=== PATIENT | female | born 1975 | race Caucasian/White ===

== ENCOUNTER → 2017-02-23 | Outpatient (CLI) | payer OTHER ==
--- NOTE | 2017-02-23 10:36 | WOMENS IMAGING REPORT ---
EXAM DESCRIPTION: U/S BREAST UNILAT LIMITED COMPLETED DATE/TIME: 02/23/2017 9:41 am REASON FOR STUDY: N60.01 U/S LIMITED N60.01 SOLITARY CYST OF RIGHT BREAST COMPARISON: None. TECHNIQUE: Real-time and static grayscale imaging performed of the right breast targeted to the area of clinical/mammographic concern. Selected color Doppler images recorded. LIMITATIONS: None. FINDINGS: MASS: Several well-circumscribed anechoic lesions with smooth posterior wall typical of be nign cyst identified in the 3 and 11 o'clock positions. In the 9 o'clock position there is a 11 x 8 x 10 mm hypoechoic lesion with internal septations and no internal flow on color Doppler. OTHER: No other significant finding. IMPRESSION: Benign cysts. There is also a complex cystic lesion at 9 o'clock which does not meet de finite benign ultrasound criteria. Correlation with mammography is recommended. Consider diagnostic cyst aspiration. BIRAD: 0 Incomplete: Needs Additional Imaging Evaluation and/or prior Mammograms for Comparison. RECOMMENDATION: RECOMMENDED FOLLOW-UP: Follow-up as clinically indicated. COMMENT: The [employer] (ACR) has developed recommendations for screening MRI of the breasts in certain patient populations, to be used in conjunction with mammography. Breast MRI s urveillance may be appropriate for women with more than 20% lifetime risk of developing breast cancer as determined by genetic testing, significant family history of the disease, or history of mantle r adiation for Hodgkins Disease. ACR Practice Guidelines 2008. TECHNICAL DOCUMENTATION: JOB ID: [id number] [employer]- All Rights Reserved
== END ==
LOC: WI 08:59
PROVIDERS: ATTEND Family Medicine
DX: N60.01 Solitary cyst of right breast (principal)
CPT/HCPCS: 76642

== ENCOUNTER → 2017-03-05 | Outpatient (CLI) | payer OTHER ==
--- NOTE | 2017-03-05 16:12 | WOMENS IMAGING REPORT ---
EXAM DESCRIPTION: BILAT DIAGNOSTIC MAMMO W/CAD COMPLETED DATE/TIME: 03/05/2017 12:19 pm REASON FOR STUDY: N63, BREAST LUMP N63 UNSPECIFIED LUMP IN BREAST COMPARISON: Ultrasound right breast dated 02/23/2017. Mammograms and ultrasound from outside facility dated 07/12/2016. TECHNIQUE: Standard craniocaudal and mediolateral oblique views of each breast recorded using digita l acquisition. Additional true lateral view of the right breast also acquired. LIMITATIONS: None. FINDINGS: RIGHT BREAST MASSES: Stable nodular masses. CALCIFICATIONS: No new or suspicious calcifications. ARCHITECTURAL DISTORTION: None. DEVELOPING DENSITY: None. ASYMMETRY: None noted. OTHER: No other significant findings. LEFT BREAST MASSES: Stable surgical changes of mastectomy. No suspicious masses. CALCIFICATIONS: No new or suspicious calcifications. ARCHITECTURAL DISTORTION: Stable surgical changes with architectural distortion. DEVELOPING DENSITY: None. ASYMMETRY: None noted. OTHER: No other significant finding. Read with the assistance of CAD: .[facility] - R2 C[employer] Version 1.3 .[facility] - R2 Cenova Version 1.3 .[facility] - R2 Cenova Version 2.4 .[facility] [place] - R2 Cenova Version 2.4 .[facility] - R2 [employer] Version 9.2 IMPRESSION: Stable mammographic appearance of both breasts. Stable mastectomy changes in the left b reast. The cystic lesions in the right breast recently evaluated with ultrasound (02/23/2017) are stab le compared to the prior study (07/12/2016). This includes the complex cystic lesion in the 9 o'cloc k location. BREAST DENSITY: c. The breasts are heterogeneously dense, which may obscure small masses. BIRAD: 2 Benign findings. RECOMMENDATION: RECOMMENDED FOLLOW UP: Birads 1 or 2: The patient should resume routine screening . SPECIFIC INTERVENTION/IMAGING/CONSULTATION RECOMMENDED:No additional intervention/ imaging/consultati on needed at this time. COMMUNICATION:The negative/benign results were communicated to the patient. COMMENT: The patient has been notified of the results by letter per MQSA requirements. Additional no tification policies are in place for contacting patient with suspicious or incomplete findings. Quality ID #[id number]: The [employer] recommends an annual screening mammogram for women aged 40 years or over. This facility utilizes a reminder system to ensure that all patients receive reminder letters, and/or direct phone calls for appointments. This includes reminders for routine scr eening mammograms, diagnostic mammograms, or other Breast Imaging Interventions when appropriate. Th is patient will be placed in the appropriate reminder system. The [employer] (ACR) has developed recommendations for screening MRI of the breast s in certain patient populations, to be used in conjunction with mammography. Breast MRI surveillanc e may be appropriate for women with more than 20% lifetime risk of developing breast cancer as deter mined by genetic testing, significant family history of the disease, or history of mantle radiation f or Hodgkins Disease. ACR Practice Guidelines 2008. TECHNICAL DOCUMENTATION: FINDING NUMBER: (1) ASSESSMENT: (1) JOB ID: [id number] [employer]- All Rights Reserved
== END ==
LOC: WI 13:40
PROVIDERS: ATTEND Family Medicine
DX: N63 Unspecified lump in breast (principal)
CPT/HCPCS: 77066; G0204

== ENCOUNTER → 2017-04-18 | Outpatient (CLI) | payer OTHER ==
[~2017-04-18] MED LIST: DIAZEPAM 5 MG TABLET ONE
--- NOTE | 2017-04-18 13:28 | RADIOLOGY REPORT (SQ) ---
EXAM DESCRIPTION: MRI HEAD WITHOUT COMPLETED DATE/TIME: 04/18/2017 11:13 am REASON FOR STUDY: HEADACHE R51 HEADACHE COMPARISON: CT dated 05/30/2015. TECHNIQUE: Multiplanar imaging includes non-contrasted T1, T2, FLAIR, and diffusion with ADC map seq uences. Images stored on PACS. LIMITATIONS: None. FINDINGS: ANATOMY: No anomalies. Normal vascular flow voids. Pituitary fossa normal. CSF SPACES: Normal in size and contour. No hemorrhage. CEREBRUM: Sulci and gyri normal in size and contour. Normal white matter signal on FLAIR imaging. No evidence of hemorrhage, mass, or extraaxial fluid collection. POSTERIOR FOSSA: No signal alteration. No hemorrhage. No edema, masses or mass effect. Internal lance tory canals, cerebello-pontine angles, mastoids normal. DIFFUSION IMAGING: Negative for acute or sub-acute infarction. ORBITS: No masses. Globes normal. PARANASAL SINUSES: No fluid levels. Mucosa normal. OTHER: No other significant finding. IMPRESSION: NORMAL MRI OF THE BRAIN WITHOUT INTRAVENOUS GADOLINIUM CONTRAST. EVIDENCE OF ACUTE STROKE: NO. TECHNICAL DOCUMENTATION: JOB ID: [id number] [employer]- All Rights Reserved
== END ==
LOC: RAD 04-16 12:43
PROVIDERS: ATTEND Family Medicine
DX: R51 Headache (principal)
CPT/HCPCS: 70551

== ENCOUNTER → 2017-06-19 | Outpatient (CLI) | payer OTHER ==
--- NOTE | 2017-06-20 09:24 | RADIOLOGY REPORT (SQ) ---
EXAM DESCRIPTION: MRI RT UPPER EXTREMITY WITHOUT COMPLETED DATE/TIME: 06/19/2017 3:47 pm REASON FOR STUDY: PAIN IN R FINGERS M79.644 PAIN IN RIGHT FINGER(S) COMPARISON: None. TECHNIQUE: Multiplanar imaging to include T1-weighted images, T-2 weighted images, and gradient echo imaging. Orthogonal images orientated to the plane of the right thumb. Images saved to PACS. LIMITATIONS: None. FINDINGS: BONES: Avulsed bone fragment adjacent to the margin of the ulnar collateral ligament. LIGAMENTS: Distal UCL is torn and turned proximally consistent with a Stener lesion. TENDONS: Tendons are intact without evidence for tendinopathy. SOFT TISSUES: No other significant finding. OTHER: No other significant finding. IMPRESSION: Torn UCL with Stener lesion. Associated avulsed bone fragment. TECHNICAL DOCUMENTATION: JOB ID: [id number] [employer]- All Rights Reserved
== END ==
LOC: RAD 14:54
PROVIDERS: ATTEND Orthopaedic Surgery
DX: M79.644 Pain in right finger(s) (principal)

== ENCOUNTER 2017-09-14 05:33 | Day surgery (SDC) | payer OTHER ==
[2017-08-24 09:00] LABS: ABSOLUTE EOSINOPHILS # (AUTO) 0.1 10^3/uL (0.0-0.6); ABSOLUTE LYMPHOCYTES (AUTO) 1.3 10^3/uL (0.5-4.7); ABSOLUTE MONOCYTES (AUTO) 0.5 10^3/uL (0.1-1.4); ABSOLUTE NEUT (AUTO) 3.7 10^3/uL (1.7-8.2); BASOPHILS % (AUTO) 0.7 % (0-2); EOSINOPHILS % (AUTO) 1.6 % (0-6); HEMATOCRIT 39.1 % (36.0-47.0); HEMOGLOBIN 13.4 g/dL (12.0-15.5); MEAN CORPUSCULAR HGB CONC 34.2 g/dL (32.0-36.0); MEAN CORPUSCULAR VOLUME 85 fl (80-97); MONOCYTES % (AUTO) 9.6 % (3-13); PLATELET COUNT 236 10^3/uL (150-450); RED BLOOD COUNT 4.62 10^6/uL (3.72-5.28); RED CELL DISTRIBUTION WIDTH 13.3 % (11.5-14.0); SEGMENTED NEUTROPHILS % (AUTO) 65.1 % (42-78); TOTAL CELLS COUNTED % (AUTO) 100 %; WHITE BLOOD COUNT 5.7 10^3/uL (4.0-10.5)
--- NOTE | 2017-08-24 09:10 | RADIOLOGY REPORT (SQ) ---
EXAM DESCRIPTION: CHEST PA/LATERAL COMPLETED DATE/TIME: 08/24/2017 9:02 am REASON FOR STUDY: PRE-OP COMPARISON: 11/19/2012. EXAM PARAMETERS: NUMBER OF VIEWS: two views TECHNIQUE: Digital Frontal and Lateral radiographic views of the chest acquired. RADIATION DOSE: NA LIMITATIONS: none FINDINGS: LUNGS AND PLEURA: No opacities, masses or pneumothorax. No pleural effusion. MEDIASTINUM AND HILAR STRUCTURES: No masses or contour abnormalities. HEART AND VASCULAR STRUCTURES: Heart normal size. No evidence for failure. BONES: No acute findings. HARDWARE: Surgical clips in the soft tissues. OTHER: No other significant finding. IMPRESSION: NO SIGNIFICANT RADIOGRAPHIC FINDING IN THE CHEST. TECHNICAL DOCUMENTATION: JOB ID: [id number] [employer]- All Rights Reserved
[2017-08-24 09:27] LABS: APPEARANCE,URINE SLIGHTLY-CLOUDY; BILIRUBIN,URINE NEGATIVE (NEGATIVE); COLOR,URINE YELLOW; GLUCOSE, URINE NEGATIVE (NEGATIVE); KETONES,URINE NEGATIVE (NEGATIVE); LEUKOCYTE ESTERASE,URINE TRACE (NEGATIVE); NITRITE,URINE NEGATIVE (NEGATIVE); PROTEIN,URINE NEGATIVE (NEGATIVE); URINE SPECIFIC GRAVITY 1.029; UROBILINOGEN,URINE NEGATIVE mg/dL (<2.0)
[2017-08-24 09:30] LABS: ANION GAP 12 (5-19); BLOOD UREA NITROGEN 12 mg/dL (7-20); CALCIUM 8.9 mg/dL (8.4-10.2); CARBON DIOXIDE 23 mmol/L (22-30); CHLORIDE 106 mmol/L (98-107); GLUCOSE 78 mg/dL (75-110); SODIUM 141.3 mmol/L (137-145)
[2017-08-24 09:35] LABS: ADD MANUAL MICROSCOPIC YES
[2017-08-24 09:39] LABS: BACTERIA,URINE 3+ /HPF
--- NOTE | 2017-08-24 13:17 | EKG REPORT ---
SEVERITY:- ABNORMAL ECG - SINUS RHYTHM NONSPECIFIC INFERIOR ST CHANGES : Confirmed by: Paolo Colin MD 24-Aug-2017 13:15:27
[~2017-09-14 05:33] MED LIST changes: +ACETAMINOPHEN 0 ML IV ONE; +BUPIVACAINE HCL 0.5 % INJ/PF 30 ML SDV ONE; +CEFAZOLIN 2 GM/D5W RTU 2 GM/50 ML RTUPB IV PRN; -DIAZEPAM 5 MG TABLET ONE; +FENTANYL CITRATE INJ/PF 100 MCG/2 ML AMPUL ONE; +LACTATED RINGERS 1000 ML IV PRN; +LIDOCAINE 0.5% INJ-PF (5 MG/ML) 50 ML SDV SUBCUT PRN; +LIDOCAINE 2% INJ-PF (20 MG/ML) 10 ML AMPUL ONE; +MIDAZOLAM 2 MG/2 ML INJ ONE; +PROPOFOL INJ 200 MG/20 ML VIAL IV ONE
[2017-09-14] MEDS ORDERED: FENTANYL CITRATE INJ/PF 100 MCG/2 ML AMPUL ONE (07:08)
[2017-09-14] MEDS ORDERED: MIDAZOLAM 2 MG/2 ML INJ ONE (07:08)
[2017-09-14] MEDS ORDERED: PROPOFOL INJ 200 MG/20 ML VIAL IV ONE (07:09)
[2017-09-14] MEDS ORDERED: FENTANYL CITRATE INJ/PF 100 MCG/2 ML AMPUL IV PRN ×3 (07:52)
--- NOTE | 2017-09-14 09:10 | PDOC DISCHARGE SUMMARY ---
Discharge Summary (SDC) - Discharge Final Diagnosis: Right Thumb UCL Reconstruction Date of Surgery: 09/14/17 Discharge Date: 09/14/17 Condition: Good Treatment or Instructions: Schedule Follow Up w/ Dr. Cleveland Hernandez @ [facility] for Surgery to be seen in 10-14 days or as scheduled [place]: [place]: [place]: Ice and elevate Keep splint clean/dry/intact. If your fingers become numb please unwrap the Dev wrap but leave the splint in place, if the sensation does not return within 30 minutes please return to the emergency department. May begin finger range of motion attempting to make full fist. Please use ibuprofen (Motrin or Advil) 600-800 mg every 8 hours as needed for pain or fever. You may also use acetaminophen (Tylenol) 1000 mg every 4-6 hours as needed for pain or fever. Please be aware that many medications contain acetaminophen, do not exceed a total of 1000 mg of acetaminophen every 6 hours. If ibuprofen and acetaminophen are not sufficient for your pain you may take the Percocet. Please be aware that the Percocet does contain Tylenol. Stool softener of choice when on pain medication. Prescriptions: Oxycodone HCl/Acetaminophen [Percocet 5-325 mg Tablet] 1 - 2 tab PO ASDIR PRN # 40 tablet PRN Reason: Discharge Diet: As Tolerated Discharge Activity: No Lifting Over 10 Pounds, No Lifting/Push/Pulling Report the Following to Your Physician Immediately: Fever over 101 Degrees, Unusual Bleeding, Redness, Swelling, Warmth, Increased Soreness
[2017-09-14] MEDS ORDERED: BUPIVACAINE HCL 0.5 % INJ/PF 30 ML SDV ONE (09:13)
[2017-09-14] MEDS ORDERED: OXYCODONE-ACETAMINOPHEN 5-325 MG TABLET PO PRN (09:19)
[2017-09-14] MEDS ORDERED: ONDANSETRON HCL INJ/PF 4 MG/2 ML SDV IV PRN (09:19)
--- NOTE | 2017-09-14 09:19 | Operative Report ---
Operative Report DATE OF SURGERY: 09/14/17 PREOPERATIVE DIAGNOSIS: Right Thumb UCL Tear POSTOPERATIVE DIAGNOSIS: Same OPERATION: Right Thumb UCL Reconstruction Utilizing Autograft SURGEON: JAKE COVARRUBIAS ANESTHESIA: GA COMPLICATIONS: None ESTIMATED BLOOD LOSS: Minimal PROCEDURE: Indication for above procedure: 42-year-old female sustained a hyperextension injury to her right thumb 2 years ago. She was treated with bracing and occupational therapy but continued to have discomfort. Subsequently on follow-up with me in MRI was done demonstrating ulnar collateral ligament rupture. At that point we discussed treatment options including operative versus nonoperative intervention. Risks and benefits were explained to the patient patient verbalized understanding consented for the procedure. Procedure In Detail: Patient was seen and evaluated in the preoperative holding area. The RIGHT upper extremity was initialized and marked. Patient received 2g of Ancef IV for bacterial prophylaxis. Patient was taken back to the operative room where transferred to the operative table and placed under general anesthesia. Once they were adequately anesthetized a nonsterile tourniquet was placed on the upper extremity. A surgical team debriefing was performed ensuring all instrumentation was available, the surgical procedure was discussed with possible concerns reviewed. The upper extremity was prepped with chlorhexidine and alcohol and draped in a sterile fashion. A timeout was done identifying correct patient, procedure and extremity everyone in attendance agree with this and verbalized no concerns. The extremity was exsanguinated the tourniquet was inflated to 250 mmHg. Curvilinear skin incision was made over the ulnar collateral ligament of the thumb at the level of the MCP joint. Blunt dissection was performed small branches of the distal aspect of the superficial radial nerve were identified and retracted. I then elevated the adductor aponeurosis just ulnar to the extensor mechanism. The underlying capsule was then opened and the ulnar collateral ligament identified. There was scarring of the ulnar collateral ligament and a proximal direction and notable laxity. Thus I split the ulnar collateral ligament and inspected the joint. No loose bodies or bone fragments were appreciated. Given the longevity of patient's injury the decision was made to proceed with reconstruction. Transverse skin incision was made along the wrist and the palmaris longus identified. A 4 cm x 3 mm section of the palmaris longus was then isolated and removed for graft. The wound was copiously irrigated with normal saline and closed with subcuticular 4-0 Monocryl suture. I then turned my attention to reconstruction at the ulnar collateral ligament. With a K wire in the MCP joint and proximal phalanx the gambell ulnar collateral ligament origin and insertion were identified and confirmed with C-arm fluoroscopy. I then drilled the three-point millimeter cannulated drill over the metacarpal and phalanx. On the back table a 40 Fiber Loop was placed into my palmaris longus graft. A 3.75 forked tip swivel lock loaded with labral tape and the end of my graft was inserted into the metacarpal. While my diversional therapist's assistant held gentle ulnar deviation and the MP joint and 45 of flexion I then loaded a second 3.75 forked tip swivel lock in the phalanx with the 40 Fiber Loop. Patient had excellent stability without evidence of laxity. MP joint range of motion was 45 to 70 without laxity. The remaining fiber Loop was then used to secure the gambell ulnar collateral ligament providing further stability. The wound was then copiously irrigated with normal saline. The adductor aponeuroses was closed with interrupted 40 Fiber Loop suture. Skin was closed with a running subcuticular 4-0 Monocryl reinforced with Dermabond and Steri-Strips. Local block was performed with 20 cc of 0.5% Marcaine without epinephrine. Patient was then placed in a thumb spica splint. Tourniquet was deflated. Sponge counts, instrument counts, needle counts counts were correct. Patient was then awoken from anesthesia. Transferred from the operating room table to the operating room stretcher. There was no intraoperative complications patient tolerated procedure well stable to PACU. Postoperative plan: Patient will follow-up the office in 2 weeks for wound check and be transitioned to a thumb spica cast versus Exos.
--- NOTE | 2017-09-14 10:48 | RADIOLOGY REPORT (SQ) ---
EXAM DESCRIPTION: FINGER RIGHT; NO CHG FLUORO COMPLETED DATE/TIME: 09/14/2017 9:05 am REASON FOR STUDY: RECONSTRUCTION RIGHT THUMB S53.30XD TRAUMATIC RUPTURE OF UNSP ULNAR COLLATERAL LI GAMENT COMPARISON: MRI right thumb 06/19/2017 Right thumb plain films 06/04/2015 FLUOROSCOPY TIME: 25 seconds 4 digital images saved to PACS. TECHNIQUE: Intra-operative images acquired during surgical procedure to evaluate progress. NUMBER OF IMAGES: 4 digital images LIMITATIONS: None. FINDINGS: Intra procedural imaging and fluoro. Stress imaging demonstrates widening of the 1st meta carpophalangeal joint ulnar aspect. K-wires in place along the 1st metacarpal head and base thumb pr oximal phalanx IMPRESSION: Intra procedural imaging and fluoro COMMENT: Quality ID [id number]: Final reports for procedures using fluoroscopy that document radiation exp osure indices, or exposure time and number of fluorographic images (if radiation exposure indices are not available) Please consult full operative report of the attending physician for description of the procedure. TECHNICAL DOCUMENTATION: JOB ID: [id number] [employer]- All Rights Reserved
[2017-09-14 12:50] VITALS: BP 131/89
[2017-09-14] MEDS ORDERED: ONDANSETRON HCL INJ/PF 4 MG/2 ML SDV ONE (13:58)
[2017-09-14] MEDS ORDERED: DEXAMETHASONE SOD PHOSPHATE INJ 4 MG/1 ML VIAL ONE (13:58)
[2017-09-14] MEDS ORDERED: SUCCINYLCHOLINE CHLORIDE INJ 200 MG/10 ML VIAL ONE (13:58)
[2017-09-14] MEDS ORDERED: LIDOCAINE 2% INJ-PF (20 MG/ML) 2 ML AMPUL ONE (13:58)
== END 2017-09-14 12:10 | disposition home or self-care (01) ==
LOC: OROUT 05:33
PROVIDERS: ATTEND Orthopaedic Surgery
PROC: 0MQ70ZZ Repair Right Hand Bursa and Ligament, Open Approach (ICD-10-PCS; principal; 2017-09-14 07:30)
DX: S53.30XA Traumatic rupture of unspecified ulnar collateral ligament, initial encounter (principal); E66.9 Obesity, unspecified; Z68.34 Body mass index [BMI] 34.0-34.9, adult; X58.XXXA Exposure to other specified factors, initial encounter
CPT/HCPCS: 93005; 36415; 85025; 80048; 81001; 71020; 73140; 93010; 26541; J2250; J1100; J3010; J0330; J2405; J2704; J3490 ×2; J0690; 01810; J0131

== ENCOUNTER 2017-09-23 15:58 | Emergency (ER) | payer OTHER ==
[2017-09-23 16:42] VITALS: BP 148/98
--- NOTE | 2017-09-23 18:16 | ER Document Report ---
ED General - General Chief Complaint: Post Surgical Pain Stated Complaint: HAND SWELLING Time Seen by Provider: 09/23/17 17:56 Mode of Arrival: Ambulatory Information source: Patient, [facility], [facility] Records Notes: This 42-year-old female patient had a right thumb ulnar collateral ligament reconstruction done on 09/14/2017. She says she feels like there is burning in the suture line and swelling of the thumb and is not able to remove the dressing and splint herself and is concerned about the wound. TRAVEL OUTSIDE OF THE [place] IN LAST 30 DAYS: No - Related Data Allergies/Adverse Reactions: hydromorphone HCl [From Dilaudid] Allergy (Verified 09/23/17 15:59) hydroxyzine Allergy (Verified 09/23/17 17:56) ibuprofen [Ibuprofen] Allergy (Verified 09/23/17 15:59) morphine [Morphine] Allergy (Verified 09/23/17 15:59) prochlorperazine edisylate [From Compazine] Allergy (Verified 09/23/17 15:59) prochlorperazine maleate [From Compazine] Allergy (Verified 09/23/17 15:59) ephedra Allergy (Uncoded 09/23/17 15:59) Past Medical History - General Information source: Patient, [facility], [facility] Records - Social History Smoking Status: Never Smoker Cigarette use (# per day): No Chew tobacco use (# tins/day): No Smoking Education Provided: No Frequency of alcohol use: None Drug Abuse: None Lives with: Friend Family History: Reviewed & Not Pertinent, CAD, CVA, DM, Hyperlipidemia, Hypertension, Malignancy, Thyroid Disfunction Patient has suicidal ideation: No Patient has homicidal ideation: No - Past Medical History Cardiac Medical History: Reports: None Pulmonary Medical History: Reports: Hx Pneumonia EENT Medical History: Reports: None Neurological Medical History: Reports: Hx Migraine Endocrine Medical History: Reports: None Renal/ Medical History: Reports: Hx Kidney Stones Malignancy Medical History: Reports: Hx Breast Cancer GI Medical History: Reports: Hx Irritable Bowel Musculoskeltal Medical History: Reports None Psychiatric Medical History: Reports: Hx Anxiety, Hx Depression, Hx Post Traumatic Stress Disorder Past Surgical History: Reports: Hx Breast Surgery - Reconstruction breast surgery, Hx Genitourinary Surgery - Urethral dilatation, Hx Hysterectomy, Hx Mastectomy, Hx Orthopedic Surgery - Right thumb ulnar collateral ligament repair on 09/14/2017, Hx Tubal Ligation - Immunizations Immunizations up to date: Yes Hx Diphtheria, Pertussis, Tetanus Vaccination: Yes Review of Systems - Review of Systems Constitutional: No symptoms reported EENT: No symptoms reported Cardiovascular: No symptoms reported Respiratory: No symptoms reported Gastrointestinal: No symptoms reported Genitourinary: No symptoms reported Musculoskeletal: See HPI Skin: No symptoms reported Hematologic/Lymphatic: No symptoms reported Neurological/Psychological: No symptoms reported Physical Exam - Vital signs Vitals: Temp Pulse Resp BP Pulse Ox 99.1 F 85 18 148/98 H 100 09/23/17 16:39 09/23/17 16:39 09/23/17 16:39 09/23/17 16:39 09/23/17 16:39 Interpretation: Normal - General General appearance: Appears well, Alert In distress: None - HEENT Head: Normocephalic, Atraumatic Eyes: Normal Pupils: PERRL - Respiratory Respiratory status: No respiratory distress - Cardiovascular Rhythm: Regular - Abdominal Inspection: Normal - Back Back: Normal - Extremities General upper extremity: Other - The right wrist has a plaster volar splint. The dev wraps were removed, the [place] was cut with bandage pattie to allow removal of the volar splint. The incisions on the dorsal thumb and ventral wrist have Steri-Strips intact. There is no erythema, there is no swelling around the wounds. Patient reports after removal of the splint that the hand and thumb are actually beginning to feel better and feels like circulation is improved. His good capillary refill to the thumb and the fingers. There is good sensation to the tip of the thumb and the fingertips. General lower extremity: Normal inspection - Neurological Neuro grossly intact: Yes - Psychological Associated symptoms: Normal affect, Normal mood - Skin Skin Temperature: Warm Skin Moisture: Dry Skin Color: Normal Course - Re-evaluation Re-evalutation: 09/23/17 20:53 The patient's plaster cock-up splint was reapplied by the PCT. There was first sterile 2 x 2's placed over the Steri-Strips that remain over the 2 incisions. Then cotton web roll was placed to cushion and pad the forearm before applying the splint. Then the splint was held in place using the Dev wraps that the patient originally had. The splint fit well, it was more comfortable at this time than before it was removed. Fingertip sensation is good. - Vital Signs Vital signs: Temp Pulse Resp BP Pulse Ox 99.1 F 85 18 148/98 H 100 09/23/17 16:39 09/23/17 16:39 09/23/17 16:39 09/23/17 16:39 09/23/17 16:39 Discharge - Discharge Clinical Impression: Visit for wound check Condition: Stable Disposition: HOME, SELF-CARE Additional Instructions: Keep the splint dressings clean and dry. Elevate the hand all the time. Follow-up with Dr. Hernandez as planned. Call the office for an early appointment if anything changes. RETURN TO THE EMERGENCY ROOM IF ANY NEW OR WORSENING SYMPTOMS.
== END 2017-09-23 19:03 | disposition home or self-care (01) ==
LOC: ER 15:58
DX: G89.18 Other acute postprocedural pain (principal); M79.89 Other specified soft tissue disorders
CPT/HCPCS: 99283

== ENCOUNTER 2017-11-22 17:53 | Emergency (ER) | payer OTHER ==
[2017-11-22] MEDS ORDERED: KETOROLAC TROMETHAMINE 60 MG/2 ML SDV IM ONE (18:22)
--- NOTE | 2017-11-22 18:24 | ER Document Report ---
ED General - General Chief Complaint: Back Pain Stated Complaint: BACK PAIN Time Seen by Provider: 11/22/17 18:17 Mode of Arrival: Ambulatory Information source: Patient TRAVEL OUTSIDE OF THE [place] IN LAST 30 DAYS: No - HPI Patient complains to provider of: Low back pain Onset: Other - Worsening over the past 2-3 months Onset/Duration: Gradual, Worse Quality of pain: Achy Severity: Moderate Pain Level: 4 Exacerbated by: Movement Relieved by: Denies Notes: Patient is a 42-year-old female presenting to the emergency room today complaining of left lower back pain radiating down the left leg at times, it has been worsening over the past 2-3 months, she denies any fevers, no injury or trauma, no saddle anesthesia, no bowel or bladder dysfunction - Related Data Allergies/Adverse Reactions: hydromorphone HCl [From Dilaudid] Allergy (Verified 11/22/17 17:55) hydroxyzine Allergy (Verified 11/22/17 17:55) ibuprofen [Ibuprofen] Allergy (Verified 11/22/17 17:55) morphine [Morphine] Allergy (Verified 11/22/17 17:55) prochlorperazine edisylate [From Compazine] Allergy (Verified 11/22/17 17:55) prochlorperazine maleate [From Compazine] Allergy (Verified 11/22/17 17:55) ephedra Allergy (Uncoded 11/22/17 17:55) Past Medical History - General Information source: Patient - Social History Smoking Status: Unknown if Ever Smoked Family History: Reviewed & Not Pertinent, CAD, CVA, DM, Hyperlipidemia, Hypertension, Malignancy, Thyroid Disfunction - Past Medical History Cardiac Medical History: Denies: Hx Heart Attack, Hx Hypertension Pulmonary Medical History: Reports: Hx Pneumonia Denies: Hx Asthma, Hx Bronchitis, Hx COPD Neurological Medical History: Reports: Hx Migraine. Denies: Hx Seizures Renal/ Medical History: Reports: Hx Kidney Stones. Denies: Hx Peritoneal Dialysis Malignancy Medical History: Reports: Hx Breast Cancer GI Medical History: Reports: Hx Irritable Bowel Musculoskeltal Medical History: Denies Hx Arthritis Psychiatric Medical History: Reports: Hx Anxiety, Hx Depression, Hx Post Traumatic Stress Disorder Past Surgical History: Reports: Hx Breast Surgery - Reconstruction breast surgery, Hx Genitourinary Surgery - Urethral dilatation, Hx Hysterectomy, Hx Mastectomy, Hx Orthopedic Surgery - Right thumb ulnar collateral ligament repair on 09/14/2017, Hx Tubal Ligation - Immunizations Immunizations up to date: Yes Hx Diphtheria, Pertussis, Tetanus Vaccination: Yes Review of Systems - Review of Systems Constitutional: No symptoms reported EENT: No symptoms reported Cardiovascular: No symptoms reported Respiratory: No symptoms reported Gastrointestinal: No symptoms reported Genitourinary: No symptoms reported Female Genitourinary: No symptoms reported Musculoskeletal: Back pain Skin: No symptoms reported Hematologic/Lymphatic: No symptoms reported Neurological/Psychological: No symptoms reported -: Yes All other systems reviewed and negative Physical Exam - Vital signs Vitals: Temp Pulse Resp BP Pulse Ox 99.2 F 91 18 125/87 H 99 11/22/17 17:59 11/22/17 17:59 11/22/17 17:59 11/22/17 17:59 11/22/17 17:59 Interpretation: Normal - General General appearance: Appears well, Alert - HEENT Head: Normocephalic, Atraumatic Eyes: Normal Pupils: PERRL - Respiratory Respiratory status: No respiratory distress Chest status: Nontender Breath sounds: Normal Chest palpation: Normal - Cardiovascular Rhythm: Regular Heart sounds: Normal auscultation Murmur: No - Abdominal Inspection: Normal Distension: No distension Bowel sounds: Normal Tenderness: Nontender Organomegaly: No organomegaly - Back Back: Normal, Tender - Tender to palpate in the left lumbar paraspinal musculature, negative straight leg raise - Extremities General upper extremity: Normal inspection, Nontender, Normal color, Normal ROM , Normal temperature General lower extremity: Normal inspection, Nontender, Normal color, Normal ROM , Normal temperature, Normal weight bearing. No: Howie's sign - Neurological Neuro grossly intact: Yes Cognition: Normal Orientation: AAOx4 [place] Coma Scale Eye Opening: Spontaneous [place] Coma Scale Verbal: Oriented [place] Coma Scale Motor: Obeys Commands [place] Coma Scale Total: 15 Speech: Normal Motor strength normal: LUE, RUE, LLE, RLE Sensory: Normal - Psychological Associated symptoms: Normal affect, Normal mood - Skin Skin Temperature: Warm Skin Moisture: Dry Skin Color: Normal Course - Re-evaluation Re-evalutation: 11/22/17 19:06 Imaging findings discussed with patient at bedside which are unremarkable except for unknown stone in the left kidney, patient was offered medication which she declined, advised [facility], return if symptoms worsen, patient acknowledges understanding and agreement with this plan - Vital Signs Vital signs: Temp Pulse Resp BP Pulse Ox 99.2 F 91 18 125/87 H 99 11/22/17 17:59 11/22/17 17:59 11/22/17 17:59 11/22/17 17:59 11/22/17 17:59 Discharge - Discharge Clinical Impression: Low back pain Qualifiers: Chronicity: acute Back pain laterality: left Sciatica presence: with sciatica Sciatica laterality: sciatica of left side Qualified Code(s): M54.42 - Lumbago with sciatica, left side Condition: Stable Disposition: HOME, SELF-CARE Instructions: Ice Packs ([facility]), Low Back Pain ([facility]), Muscle Strain ([facility]), Warm Packs ([facility]) Additional Instructions: Follow up with your primary care provider and orthopedic surgeon in one to 2 days. Return to the emergency room immediately if symptoms worsen or any additional concerns.
--- NOTE | 2017-11-22 18:55 | RADIOLOGY REPORT (SQ) ---
EXAM DESCRIPTION: L SPINE WHOLE COMPLETED DATE/TIME: 11/22/2017 6:47 pm REASON FOR STUDY: pain COMPARISON: None. NUMBER OF VIEWS: Five views including obliques. TECHNIQUE: AP, lateral, oblique, and sacral radiographic images acquired of the lumbar spine. LIMITATIONS: None. FINDINGS: MINERALIZATION: Normal. SEGMENTATION: Normal. No transitional anatomy. ALIGNMENT: Normal. VERTEBRAE: Maintained height. No fracture or worrisome bone lesion. DISCS: Preserved height. No significant osteophytes or end plate irregularity. POSTERIOR ELEMENTS: Pedicles and facets are intact. No pars defect or posterior arch defects. HARDWARE: None in the spine. PARASPINAL SOFT TISSUES: Normal. PELVIS: Intact as visualized. No fractures or worrisome bone lesions. SI joints intact. OTHER: Calculi in the left kidney. IMPRESSION: NORMAL 5 VIEW LUMBAR SPINE. CALCULI IN THE LEFT KIDNEY. TECHNICAL DOCUMENTATION: JOB ID: [id number] [employer]- All Rights Reserved Reading location - IP/workstation name: [email or web address]
[2017-11-22 19:42] VITALS: BP 126/83
== END 2017-11-22 19:39 | disposition home or self-care (01) ==
LOC: ER 17:53
DX: M54.42 Lumbago with sciatica, left side (principal); Z88.6 Allergy status to analgesic agent; Z87.442 Personal history of urinary calculi; Z90.710 Acquired absence of both cervix and uterus
CPT/HCPCS: 72110; 99283

== ENCOUNTER 2018-03-26 21:24 | Emergency (ER) | payer OTHER ==
[2018-03-26 22:48] LABS: AMORPHOUS SEDIMENT,URINE TRACE /HPF; APPEARANCE,URINE CLOUDY; BILIRUBIN,URINE NEGATIVE (NEGATIVE); COLOR,URINE YELLOW; GLUCOSE, URINE NEGATIVE (NEGATIVE); KETONES,URINE NEGATIVE (NEGATIVE); LEUKOCYTE ESTERASE,URINE LARGE (NEGATIVE); NITRITE,URINE NEGATIVE (NEGATIVE); PROTEIN,URINE 30 mg/dL (NEGATIVE); URINE SPECIFIC GRAVITY 1.028
--- NOTE | 2018-03-26 23:32 | ER Document Report ---
ED Medical Screen (RME) - General Chief Complaint: Urinary Problem Stated Complaint: FREQUENT URINATION Time Seen by Provider: 03/26/18 23:23 Mode of Arrival: Ambulatory Notes: Patient is a 43-year-old female who presents with chief complaint of possible urinary tract infection, right flank pain and nausea. Patient reports that she has had the symptoms for 2 days. Patient denies specific fever but reports that she has felt warm and has had intermittent periods of chills. Patient reports history of urethral dilation as well as kidney stones. Patient also concerned that she may be passing a kidney stone. Exam: Positive CVA tenderness to right side, tenderness to palpation to right flank. No CVA tenderness to left side, tenderness to palpation to left flank. Initial urinalysis with large blood, large leukocytes greater than 182 white blood cells and white blood cell clumps. Due to patient's history as well as flank pain and CVA tenderness, will send patient for CT for renal stone evaluation. I have greeted and performed a rapid initial assessment of this patient. A comprehensive ED assessment and evaluation of the patient, analysis of test results and completion of the medical decision making process will be conducted by additional ED providers. Dictation of this chart was performed using voice recognition software; therefore, there may be some unintended grammatical errors. TRAVEL OUTSIDE OF THE [place] IN LAST 30 DAYS: No - Related Data Allergies/Adverse Reactions: hydromorphone HCl [From Dilaudid] Allergy (Verified 11/22/17 17:55) hydroxyzine Allergy (Verified 11/22/17 17:55) ibuprofen [Ibuprofen] Allergy (Verified 11/22/17 17:55) morphine [Morphine] Allergy (Verified 11/22/17 17:55) prochlorperazine edisylate [From Compazine] Allergy (Verified 11/22/17 17:55) prochlorperazine maleate [From Compazine] Allergy (Verified 11/22/17 17:55) ephedra Allergy (Uncoded 11/22/17 17:55) Past Medical History - Social History Family history: CAD, DM, Hypertension, Other - Past Medical History Cardiac Medical History: Denies: Hx Heart Attack, Hx Hypertension Pulmonary Medical History: Reports: Hx Pneumonia Denies: Hx Asthma, Hx Bronchitis, Hx COPD Neurological Medical History: Reports: Hx Migraine. Denies: Hx Seizures Renal/ Medical History: Reports: Hx Kidney Stones. Denies: Hx Peritoneal Dialysis Malignancy Medical History: Reports: Hx Breast Cancer GI Medical History: Reports: Hx Irritable Bowel Musculoskeltal Medical History: Denies Hx Arthritis Psychiatric Medical History: Reports: Hx Anxiety, Hx Depression, Hx Post Traumatic Stress Disorder Past Surgical History: Reports: Hx Breast Surgery - Reconstruction breast surgery, Hx Genitourinary Surgery - Urethral dilatation, Hx Hysterectomy, Hx Mastectomy, Hx Orthopedic Surgery - Right thumb ulnar collateral ligament repair on 09/14/2017, Hx Tubal Ligation - Immunizations Immunizations up to date: Yes Hx Diphtheria, Pertussis, Tetanus Vaccination: Yes History of Influenza Vaccine for 06/2017 - 11/2017 Season: Yes Influenza Administration Date for 06/2017 - 11/2017 Season: 06/24/17 Physical Exam - Vital signs Vitals: Temp Pulse Resp BP Pulse Ox 99.0 F 105 H 20 151/95 H 100 03/26/18 21:44 03/26/18 21:44 03/26/18 21:44 03/26/18 21:44 03/26/18 21:44 Course - Vital Signs Vital signs: Temp Pulse Resp BP Pulse Ox 99.0 F 105 H 20 151/95 H 100 03/26/18 21:44 03/26/18 21:44 03/26/18 21:44 03/26/18 21:44 03/26/18 21:44 - Laboratory Laboratory results interpreted by me: 03/26/18 22:20 Urine Protein 30 H Urine Blood LARGE H Urine Urobilinogen 2.0 H Ur Leukocyte Esterase LARGE H Urine Ascorbic Acid 40 H
[2018-03-27 00:31] LABS: ABSOLUTE BASOPHILS # (AUTO) 0.1 10^3/uL (0.0-0.2); ABSOLUTE EOSINOPHILS # (AUTO) 0.1 10^3/uL (0.0-0.6); ABSOLUTE LYMPHOCYTES (AUTO) 2.1 10^3/uL (0.5-4.7); ABSOLUTE NEUT (AUTO) 5.9 10^3/uL (1.7-8.2); BASOPHILS % (AUTO) 1.1 % (0-2); EOSINOPHILS % (AUTO) 1.6 % (0-6); HEMOGLOBIN 13.9 g/dL (12.0-15.5); LYMPHOCYTES % (AUTO) 22.3 % (13-45); MEAN CORPUSCULAR HEMOGLOBIN 28.6 pg (27.0-33.4); MEAN CORPUSCULAR HGB CONC 33.8 g/dL (32.0-36.0); MEAN CORPUSCULAR VOLUME 85 fl (80-97); MONOCYTES % (AUTO) 11.4 % (3-13); PLATELET COUNT 280 10^3/uL (150-450); RED BLOOD COUNT 4.85 10^6/uL (3.72-5.28); RED CELL DISTRIBUTION WIDTH 13.2 % (11.5-14.0); SEGMENTED NEUTROPHILS % (AUTO) 63.6 % (42-78); TOTAL CELLS COUNTED % (AUTO) 100 %; WHITE BLOOD COUNT 9.2 10^3/uL (4.0-10.5)
[2018-03-27 00:45] LABS: ALANINE AMINOTRANSFERASE 23 U/L (9-52); ALBUMIN 4.3 g/dL (3.5-5.0); ALKALINE PHOSPHATASE 70 U/L (38-126); ANION GAP 13 (5-19); ASPARTATE AMINO TRANSFERASE 15 U/L (14-36); BILIRUBIN,DIRECT 0.2 mg/dL (0.0-0.4); BILIRUBIN,TOTAL 0.5 mg/dL (0.2-1.3); BLOOD UREA NITROGEN 14 mg/dL (7-20); CARBON DIOXIDE 27 mmol/L (22-30); CHLORIDE 103 mmol/L (98-107); GLUCOSE 97 mg/dL (75-110); POTASSIUM 4.4 mmol/L (3.6-5.0); SODIUM 142.9 mmol/L (137-145); TOTAL PROTEIN 7.7 g/dL (6.3-8.2)
--- NOTE | 2018-03-27 01:01 | ER Document Report ---
ED GI/ - General Chief Complaint: Urinary Problem Stated Complaint: FREQUENT URINATION Time Seen by Provider: 03/26/18 23:23 Mode of Arrival: Ambulatory Notes: Patient is a 43-year-old female comes emergency department for chief complaint of flank pain and nausea over the past 2 days. She is feeling pain on both sides, she reports to me it is worse on the left. She denies fever, reports possible chills. She denies nausea or vomiting. Patient has had a history of kidney stones in the past. Patient has had a hysterectomy. TRAVEL OUTSIDE OF THE [place] IN LAST 30 DAYS: No - Related Data Allergies/Adverse Reactions: hydromorphone HCl [From Dilaudid] Allergy (Verified 11/22/17 17:55) hydroxyzine Allergy (Verified 11/22/17 17:55) ibuprofen [Ibuprofen] Allergy (Verified 11/22/17 17:55) morphine [Morphine] Allergy (Verified 11/22/17 17:55) prochlorperazine edisylate [From Compazine] Allergy (Verified 11/22/17 17:55) prochlorperazine maleate [From Compazine] Allergy (Verified 11/22/17 17:55) ephedra Allergy (Uncoded 11/22/17 17:55) Past Medical History - General Information source: Patient - Social History Smoking Status: Former Smoker Frequency of alcohol use: Occasional Drug Abuse: None Lives with: Alone Family History: Reviewed & Not Pertinent, CAD, CVA, DM, Hyperlipidemia, Hypertension, Malignancy, Thyroid Disfunction - Past Medical History Cardiac Medical History: Denies: Hx Heart Attack, Hx Hypertension Pulmonary Medical History: Reports: Hx Pneumonia Denies: Hx Asthma, Hx Bronchitis, Hx COPD Neurological Medical History: Reports: Hx Migraine. Denies: Hx Seizures Renal/ Medical History: Reports: Hx Kidney Stones. Denies: Hx Peritoneal Dialysis Malignancy Medical History: Reports: Hx Breast Cancer GI Medical History: Reports: Hx Irritable Bowel Musculoskeltal Medical History: Denies Hx Arthritis Psychiatric Medical History: Reports: Hx Anxiety, Hx Depression, Hx Post Traumatic Stress Disorder Past Surgical History: Reports: Hx Breast Surgery - Reconstruction breast surgery, Hx Genitourinary Surgery - Urethral dilatation, Hx Hysterectomy, Hx Mastectomy, Hx Orthopedic Surgery - Right thumb ulnar collateral ligament repair on 09/14/2017, Hx Tubal Ligation - Immunizations Immunizations up to date: Yes Hx Diphtheria, Pertussis, Tetanus Vaccination: Yes Review of Systems - Review of Systems Constitutional: No symptoms reported EENT: No symptoms reported Cardiovascular: No symptoms reported Respiratory: No symptoms reported Gastrointestinal: See HPI Genitourinary: See HPI Female Genitourinary: No symptoms reported Musculoskeletal: No symptoms reported Skin: No symptoms reported Hematologic/Lymphatic: No symptoms reported Neurological/Psychological: No symptoms reported Physical Exam - Vital signs Vitals: Temp Pulse Resp BP Pulse Ox 99.0 F 105 H 20 151/95 H 100 03/26/18 21:44 03/26/18 21:44 03/26/18 21:44 03/26/18 21:44 03/26/18 21:44 - Notes Notes: GENERAL: Alert, interacts well. No acute distress. HEAD: Normocephalic, atraumatic. EYES: Pupils equal, round, and reactive to light. Extraocular movements intact. ENT: Oral mucosa moist, tongue midline. NECK: Full range of motion. Supple. Trachea midline. LUNGS: Clear to auscultation bilaterally, no wheezes, rales, or rhonchi. No respiratory distress. HEART: Regular rate and rhythm. No murmur ABDOMEN: Soft, non-tender. Non-distended. Bowel sounds present in all 4 quadrants. EXTREMITIES: Moves all 4 extremities spontaneously. No edema, normal radial and dorsalis pedis pulses bilaterally. No cyanosis. BACK: no cervical, thoracic, lumbar midline tenderness. Right and left CVA tenderness, P equal, no severe tenderness. NEUROLOGICAL: Alert and oriented x3. Normal speech. [cranial nerves II through XII grossly intact]. PSYCH: Patient with very elevated mood, joking, teasing, laughing SKIN: Warm, dry, normal turgor. No rashes or lesions noted. Course - Re-evaluation Re-evalutation: Patient is well-appearing. Soft abdomen. She has CVA tenderness which is mild over both right and left sides of the back. Vital signs are unremarkable except for mild initial tachycardia which resolved without intervention. No fever. CBC unremarkable, chemistry unremarkable, urine shows infection. Culture placed. Started on Keflex. CAT scan was performed because of her history of stones and flank pain, I reviewed this, shows left nephrolithiasis but no ureterolithiasis or evidence of infected stone. Discussed workup with patient. She declines nausea medication, pain medication , states that she will follow-up with urology, requests Diflucan for after taking antibiotics. Provided with CT report/disk for her to take. Discussed return precautions in detail. Patient states understanding and agreement. - Vital Signs Vital signs: Temp Pulse Resp BP Pulse Ox 98.4 F 90 16 108/87 H 100 03/27/18 03:12 03/27/18 03:12 03/27/18 03:12 03/27/18 03:12 03/27/18 03:12 - Laboratory Result Diagrams: 03/26/18 23:58 03/26/18 23:58 Laboratory results interpreted by me: 03/26/18 22:20 Urine Protein 30 H Urine Blood LARGE H Urine Urobilinogen 2.0 H Ur Leukocyte Esterase LARGE H Urine Ascorbic Acid 40 H Discharge - Discharge Clinical Impression: Flank pain Urinary tract infection Qualifiers: Urinary tract infection type: site unspecified Hematuria presence: without hematuria Qualified Code(s): N39.0 - Urinary tract infection, site not specified Condition: Stable Disposition: HOME, SELF-CARE Additional Instructions: Your CAT scan shows kidney stones but no passing or infected stone. Your workup indicates urinary tract infection. Take Keflex antibiotics to completion , after completion take Diflucan to avoid yeast infection. Follow-up with urology, bring your disc. Return if you worsen including fever, vomiting, or any other concerning or worsening symptoms. Prescriptions: Cephalexin Monohydrate [Keflex 500 mg Capsule] 500 mg PO QID #28 capsule Fluconazole [Diflucan] 150 mg PO ONCE PRN #1 tablet PRN Reason:
--- NOTE | 2018-03-27 02:19 | RADIOLOGY REPORT (SQ) ---
EXAM DESCRIPTION: CT ABDOMEN PELVIS WITHOUT IV CONTRAST COMPLETED DATE/TME: 03/26/2018 23:28 CLINICAL HISTORY: 43 years Female, +cva tenderness, flank pain, hx of renal stones Comparison: None. Technique: No contrast. Coronal and sagittal reformat. 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 Unenhanced lower thorax, abdominopelvic structures, and musculoskeleton appear otherwise grossly unremarkable. Impression: No acute findings. Left nephrolithiasis.
[2018-03-27] MEDS ORDERED: CEPHALEXIN 500 MG CAPSULE PO ONE (02:37)
[2018-03-27 03:14] VITALS: BP 108/87
== END 2018-03-27 03:14 | disposition home or self-care (01) ==
LOC: ER 21:24
DX: N39.0 Urinary tract infection, site not specified (principal); R10.9 Unspecified abdominal pain; R11.0 Nausea; Z87.442 Personal history of urinary calculi; Z88.6 Allergy status to analgesic agent; Z87.891 Personal history of nicotine dependence; Z85.3 Personal history of malignant neoplasm of breast; Z90.710 Acquired absence of both cervix and uterus
CPT/HCPCS: 36415; 74176; 80053; 81001; 85025; 87086; 87088; 87186; 99284